=== PATIENT | male | born 1990 | race Caucasian/White ===

== ENCOUNTER 2021-10-10 10:15 | Emergency (ER) | payer OTHER ==
[2021-10-10 10:29] VITALS: BP 122/67; BMI 25.7
[2021-10-10 11:02] VITALS: PULSE 71; TEMP 98.4
[2021-10-12 07:06] LABS: SARS-CoV-2 NAA Not Detected (Not Detected)
== END 2021-10-10 12:12 | disposition home or self-care (01) ==
LOC: FER 10:15
DX: B34.9 Viral infection, unspecified (principal)
CPT/HCPCS: 87804; 99283-25; C9803; U0003; U0005

== ENCOUNTER 2022-10-14 18:01 | Emergency (ER) | payer OTHER ==
[2022-10-14 18:31] VITALS: BMI 27.2
[2022-10-14 19:13] VITALS: BP 111/76; PULSE 72; RESP 16; TEMP 98.6
== END 2022-10-14 19:38 | disposition home or self-care (01) ==
LOC: FER 18:01
DX: L03.113 Cellulitis of right upper limb (principal)
CPT/HCPCS: 99283-25